=== PATIENT | female | born 1990 | race Caucasian/White ===

== ENCOUNTER 2019-07-31 07:25 | Outpatient (RCR) | payer OTHER, SELFPAY ==
[2019-07-31 08:54] LABS: Hematocrit 30.9 % (37.0-47.0); Hemoglobin 10.3 g/dL (12.0-15.0)
[2019-07-31 09:03] LABS: Glucose 1 Hour PP 50gm Dose 162 mg/dL
[2019-07-31 09:44] LABS: HIV 1/2 Ab P24 Ag Result Negative (Negative)
[2019-07-31 09:50] LABS: Vitamin D 25 Hydroxy 27.9 ng/mL
[2019-08-01] MEDS: RHO(D) IMMUNE GLOBULIN 300 MCG SYRINGE IM (10:20)
== END 2019-10-29 23:59 | disposition home or self-care (01) ==
LOC: ANHLAB 07:25
PROVIDERS: Visit Provider Obstetrics & Gynecology Gynecology
DX: Z36.89 Encounter for other specified antenatal screening (principal); Z29.13 Encounter for prophylactic Rho(D) immune globulin; O36.0990 Maternal care for other rhesus isoimmunization, unspecified trimester, not applicable or unspecified; Z3A.00 Weeks of gestation of pregnancy not specified
CPT/HCPCS: 36415; 82306; 82947; 85014; 85018; 86703; 90384; 96372; G0432; J2790

== ENCOUNTER 2019-10-09 09:15 | Outpatient (RCR) | payer OTHER, SELFPAY ==
[2019-08-30 10:18] VITALS: BP 122/72
[2019-09-06 10:18] VITALS: BP 115/62; PULSE 101
[2019-09-12 10:11] VITALS: BP 118/72; PULSE 107
[2019-09-19 15:22] VITALS: BP 108/69; PULSE 111
[2019-09-26 11:09] VITALS: BP 122/77; PULSE 104
[2019-10-03 10:46] VITALS: BP 115/73; PULSE 106
[2019-10-09 10:31] VITALS: BP 112/74; PULSE 47
== END 2019-11-16 08:54 | disposition home or self-care (01) ==
LOC: ANHOBOP 09:15
PROVIDERS: PCP Family Medicine; Visit Provider Obstetrics & Gynecology Gynecology
DX: O24.419 Gestational diabetes mellitus in pregnancy, unspecified control (principal); Z3A.32 32 weeks gestation of pregnancy; Z3A.33 33 weeks gestation of pregnancy; Z3A.34 34 weeks gestation of pregnancy; Z3A.35 35 weeks gestation of pregnancy; Z3A.36 36 weeks gestation of pregnancy; Z3A.37 37 weeks gestation of pregnancy; Z3A.38 38 weeks gestation of pregnancy
CPT/HCPCS: 59025

== ENCOUNTER 2019-10-13 04:37 | Inpatient (IN) | payer OTHER, SELFPAY ==
[2019-10-13] VITALS (96 sets, daily range): BP systolic 92–134; BP diastolic 46–80; PULSE 60–112; RESP 18; TEMP 36.4–37.4; O2SAT 98–100; BMI 35.1
[2019-10-13] MEDS: AMPICILLIN 2 GM/NS 100 ML 2 GM/100 ML BAG IVPB (05:09)
[2019-10-13] MEDS: LACTATED RINGERS 1,000 ML 125 ML IV CONT ×2 (05:10→10:00)
[2019-10-13 05:11] LABS: Basophils Percent Auto 0.3 % (0.2-1.2); Eosinophils Absolute Auto 0.1 K/mm3 (0-0.3); Hematocrit 33.7 % (37.0-47.0); Hemoglobin 11.5 g/dL (12.0-15.0); Immature Granulocyte Absolute 0.09 K/mm3 (0.00-0.031); Immature Granulocyte Percent A 0.8 % (0-0.5); Lymphocytes Absolute Auto 3.03 K/mm3 (0.9-3.2); Lymphocytes Percent Auto 26.4 % (18.3-44.2); Mean Corpuscular HGB Conc 34.1 g/dl (32-36); Mean Corpuscular Volume 90.8 fl (80-100); Mean Platelet Volume 9.8 fl (7.4-10.4); Monocytes Absolute Auto 0.7 K/mm3 (0.1-0.6); Monocytes Percent Auto 6.2 % (2.6-8.5); Neutrophils Absolute Auto 7.5 K/mm3 (1.3-6.7); Neutrophils Percent Auto 65.3 % (45.5-73.1); Platelet Count Result 240 k/mm3 (150-375); Red Blood Count 3.71 M/mm3 (4.2-5.4); Red Cell Distribution Width 15.3 % (11.5-14.5); White Blood Count 11.5 K/mm3 (4.5-10.0)
[2019-10-13] MEDS: OXYTOCIN 30 UNITS/NS 500 ML 30 UNITS/500 ML BAG IV CONT (05:11)
--- NOTE | 2019-10-13 05:20 | LDADM ---
This patient, Asha Vallejo, was admitted to Labor/Delivery/Recovery 104 on 10/13/19 at 04:37. Plans for labor, pain management and were discussed with patient. Patient/family oriented to hospital policies and general routines including ID bracelet, bed and alarms, visiting hours, pain management, procedures, bathroom and other care routines, personal items, smoking policy, room service/diet and guest tray routines, infant security routines, and visiting hours. Patient/Family are encouraged to report perceived risks to care and to ask questions if they do not understand what they are told or what they should do. See OBIX for further documentation.
--- NOTE | 2019-10-13 07:50 | WPDOBADMIT ---
Obstetrics - Admit Note Admission Note: record reviewed. No pertinent additions to the history and/or any subsequent changes in the physical findings that are not consistent with the expected course of the were found. Additions to the history and/or subsequent changes in the physical findings follow. Here for MIL for GDMA2. Cervix 3-4/th/-3 AROM attempted and minimal fluid returned. FHTs reactive.
[2019-10-13 07:54] LABS: Rapid Plasma Reagin Non-Reactive (NonReactive)
[2019-10-13] MEDS: ONDANSETRON INJ 4 MG/2 ML VIAL IV PUSH (08:17)
[2019-10-13 08:45] LABS: Glucose Point of Care 81 (65-105)
[2019-10-13] MEDS: AMPICILLIN 1 GM/NS 50 ML 1 GM/50 ML BAG IVPB ×2 (09:03→12:45)
[2019-10-13 12:50] LABS: Glucose Point of Care 89 (65-105)
--- NOTE | 2019-10-13 16:51 | PM.OBPRVD ---
OB - Delivery Note Procedure Delivery date: 10/13/19 Procedure: events: Gestational Diabetes (GDMA2) Intrapartal events: None Induction method: AROM and per pitocin protocol Delivery monitor: external FHT and external uterine Route of delivery: Laceration description: Perineal - 2nd Degree (and 1st degree periurethral) Delivery repair: vicryl Specimen: No Estimated blood loss (mL): 100 Anesthesia type: Epidural Disposition: floor Baby Weeks of gestation at delivery: 39 gender: Male Weight (pounds): 6 Weight (ounces): 14 presentation: vertex Placenta delivery description: Spontaneous cord vessel description: 3 Vessels score one minute: 9 score five minutes: 9
--- NOTE | 2019-10-13 16:54 | PM.OBDSVD ---
DS: Diagnosis Discharge Diagnosis (1) 39 weeks gestation of : Code(s): Z3A.39 - 39 weeks gestation of Status: Acute (2) (normal spontaneous vaginal delivery): Code(s): O80 - Encounter for full-term uncomplicated delivery Status: Acute (3) GDM, class A2: Code(s): O24.419 - Gestational diabetes mellitus in , unspecified control Status: Acute OB - DS: Summary OB Procedures : NST and Ultrasound OB Procedures Intrapartum: Spontaneous Vag Delivery OB Procedures: : None Peripartum Data Delivery Method: Natural Vaginal Laceration description: Perineal - 2nd Degree (and periurethral) complications: none Status at Discharge Functional status at discharge: independent ambulation Overall status at discharge: patient is progressing back to baseline Time Spent with Patient Time attestation: Total time spent providing and/or coordinating discharge services: DS: Data Data Completed and Pending Labs on day of discharge: Labs from last 24 hours 10/13/19 10/13/19 10/13/19 12:48 08:08 05:04 WBC RBC Hgb Hct MCV MCH MCHC RDW Plt Count MPV Immature Gran % (Auto) Neut % (Auto) Lymph % (Auto) [place] % (Auto) Eos % (Auto) Baso % (Auto) Lymph # (Auto) [place] # (Auto) Eos # (Auto) Baso # (Auto) Abs Immat Gran (auto) Absolute Neuts (auto) Absolute Nucleated RBC Nucleated RBC % POC Capillary Glucose 89 81 RPR Blood Type A Negative Antibody Screen Negative 10/13/19 10/13/19 05:04 05:04 WBC 11.5 H RBC 3.71 L Hgb 11.5 L Hct 33.7 L MCV 90.8 MCH 31.0 MCHC 34.1 RDW 15.3 H Plt Count 240 MPV 9.8 Immature Gran % (Auto) 0.8 H Neut % (Auto) 65.3 Lymph % (Auto) 26.4 Traverse % (Auto) 6.2 Eos % (Auto) 1.0 Baso % (Auto) 0.3 Lymph # (Auto) 3.03 [place]verse # (Auto) 0.7 H Eos # (Auto) 0.1 Baso # (Auto) 0.0 Abs Immat Gran (auto) 0.09 H Absolute Neuts (auto) 7.5 H Absolute Nucleated RBC 0.0 Nucleated RBC % 0.0 POC Capillary Glucose RPR Non-reactive Blood Type Antibody Screen Discharge Plan Discharge Attending physician on discharge: Ree Pinedo Discharging Clinician: Ree Pinedo Anticipated Discharge Date/Time: 10/14/19 18:00 Patient Disposition: Home, Self-Care Activity: may drive after 2 weeks, as tolerated and pelvic rest Diet: regular Discharge Instructions: Education: Mom and Baby Guide Given to: Mother Follow-Up: Call your delivering provider's office for an appointment to be seen in: 6 Weeks Mom and baby should come to the [facility] for the follow-up appointment. Appointment Date/Time: October at 9:00 a.m. What to expect at your follow-up visit: Blood Pressure Check Physical Assessment Call [phone] if you are unable to keep your appointment time. BREAST CARE: 1. Wear a snug supportive bra. 2. For engorgement discomfort: Breast Feeding: A. Apply warm moist washcloths B. Express milk as needed to relieve engorgement C. Wear loose clothing 3. For sore nipples: A. Identify correct latch-on B. Apply warm moist washcloths before and after nursing C. Air dry nipples after nursing D. May apply Lansinoh cream to nipples EPISIOTOMY/PERINEAL CARE: 1. Until bleeding stops, use your beau bottle after urinating 2. Change your pad frequently throughout the day 3. You may take sitz baths several times a day (fill your bathtub with warm water and soak for 20 minutes.) Do NOT bathe in the water 4. No tub baths until seen by your physician - You may shower ACTIVITY: 1. Rest as much as possible. 2. Do not exercise or lift anything heavier than your baby (such as laundry or other children.) 3. Avoid stairs or driving as much a
[2019-10-13] MEDS: OXYTOCIN 30 UNITS/NS 500 ML 30 UNITS/500 ML BAG 125 UNITS IV CONT (17:06)
[2019-10-13] MEDS: WITCH HAZEL 40 PADS 1 PAD TOPICAL (19:12)
[2019-10-13] MEDS: BENZOCAINE 20% AER SPR (*SP) 56 GM CAN 1 SPRAY TOPICAL (19:12)
--- NOTE | 2019-10-13 19:30 | PC.NURSE ---
Patient arrived to unit at 1926 via wheelchair with and significant other. Oriented to floor. Discussed admission packet in detail. Call light placed in reach. Demetra ROBERTO
[2019-10-13] MEDS: IBUPROFEN 600 MG TABLET PO (21:02)
[2019-10-14] MEDS: IBUPROFEN 600 MG TABLET PO ×2 (03:50→14:01)
[2019-10-14 06:08] LABS: Hematocrit 29.6 % (37.0-47.0); Hemoglobin 9.6 g/dL (12.0-15.0)
[2019-10-14 08:00] VITALS: BP 113/64; PULSE 73; RESP 18; TEMP 36.6; O2SAT 100
[2019-10-14] MEDS: ACETAMINOPHEN 325 MG TABLET 650 MG PO (08:26)
[2019-10-14] MEDS: MULTIVIT/MIN/PREN/FOL AC/IRON TABLET 1 TAB PO (08:27)
[2019-10-14] MEDS: POLYSACCHARIDE IRON COMPLEX 150 MG CAPSULE PO ×2 (08:27→16:43)
[2019-10-14] MEDS: DOCUSATE SODIUM 100 MG CAPSULE PO ×2 (08:28→16:43)
[2019-10-14 08:30] VITALS: PULSE 73; RESP 18; O2SAT 100
--- NOTE | 2019-10-14 08:53 | P.PNOB_ITS ---
OB - PN: Subj Subjective Date/time seen: 10/14/19 08:53 Patient comments: no complaints, pain well controlled, tolerating diet and flatus present baby status: doing well and nursing well [place] feeding status: exclusively breast feeding OB - PN: Obj Data Labs CBC & Chem 7: 10/14/19 05:05 Labs: Laboratory Results - last 24 hr 10/13/19 10/14/19 10/14/19 12:48 05:05 05:05 Hgb 9.6 L Hct 29.6 L POC Capillary Glucose 89 Blood Type A Negative Antibody Screen Negative Screen Negative Baby's Blood Type B pos Baby's ROSALEE Negative Doses of RhIg Required 1 OB - PN A/P Plan day: 1 Plan: routine care, discharge home and follow up 6 weeks Comments: Desires infant to be circumcised. Discussed procedure and its risk. Informed consent obtained Time Spent With Patient Time: Total time spent is greater than 50% in coordination of care (as documented) at patient's floor/unit and/or counseling patient: Time with patient: 15 - 25 minutes Review of Systems Constitutional: Constitutional: Reports no additional constitutional complaints Cardiovascular: Cardiovascular: Reports no additional cardiovascular complaints Respiratory: Respiratory: Reports no additional respiratory complaints Gastrointestinal: Gastrointestinal: Reports no additional gastrointestinal complaints Genitourinary: Genitourinary: Reports no additional female genitourinary complaints Exam Const: General: comfortable, no acute distress, alert and awake Resp: Effort & Inspection: normal respiratory effort Auscultation: clear to auscultation bilaterally Cardio: Rate: regular rate GI: Auscultation: normal bowel sounds Other: Fundus firm below umbilicus Psych: Appearance: grossly normal
--- NOTE | 2019-10-14 08:54 | PM.OBDSVD ---
OB - DS: Summary OB Procedures : NST OB Procedures Intrapartum: Spontaneous Vag Delivery OB Procedures: : None Peripartum Data Delivery Method: Natural Vaginal Time Spent with Patient Time attestation: Total time spent providing and/or coordinating discharge services: Exam Const: General: comfortable, no acute distress, alert and awake Resp: Effort & Inspection: normal respiratory effort Auscultation: clear to auscultation bilaterally Cardio: Rate: regular rate GI: GI Palp: Yes Soft to palpation Auscultation: normal bowel sounds Other: Fundus firm below umbilicus DS: Data Data Completed and Pending Labs on day of discharge: Labs from last 24 hours 10/14/19 10/14/19 10/13/19 05:05 05:05 12:48 Hgb 9.6 L Hct 29.6 L POC Capillary Glucose 89 Blood Type A Negative Antibody Screen Negative Screen Negative Baby's Blood Type B pos Baby's ROSALEE Negative Doses of RhIg Required 1 Discharge Plan Discharge Attending physician on discharge: Ree Pinedo Discharging Clinician: Ree Pinedo Anticipated Discharge Date/Time: 10/14/19 18:00 Patient Disposition: Home, Self-Care Activity: may drive after 2 weeks, as tolerated and pelvic rest Diet: regular Patient Instructions: Antibiotic Form Stand Alone Forms: General Discharge Information Follow-up/Referrals: Ree Pinedo MD [Physician] - 6 Weeks Discharge Medications: New polysaccharide iron complex 150 mg iron Capsule 150 mg PO BIDWM Qty: 60 RF: 0 docusate sodium 100 mg Capsule 100 mg PO BID PRN (Reason: Constipation) Qty: 60 RF: 0 ibuprofen 600 mg Tablet 600 mg PO Q6H PRN (Reason: Cramping) Qty: 60 RF: 0 Continued PNV cmb#95-ferrous fumarate-FA [] 28 mg iron- 800 mcg Tablet 1 tablet PO DAILY RF: 0 ergocalciferol (vitamin D2) [Vitamin D2] 1,250 mcg (50,000 unit) Capsule 50,000 unit PO 2XW RF: 0 Discontinued insulin lispro [Humalog U-100 Insulin] 100 unit/mL Solution 4 unit subcut AC RF: 0 Novolin N NPH U-100 Insulin 100 unit/mL Suspension 52 unit SUBCUT HS RF: 0 ferrous sulfate 325 mg (65 mg iron) Tablet 325 mg PO DAILY RF: 0 Date of admission: 10/13/19 04:37 Primary Care Provider: Beth Thorpe Admitting Provider: Ree Pinedo Attending physician on admission: Ree Pinedo Condition: Stable
[2019-10-14] MEDS: RHO(D) IMMUNE GLOBULIN 300 MCG SYRINGE IM (15:31)
--- NOTE | 2019-10-14 16:00 | PC.NURSE ---
1100-Patient viewed the discharge video Mother & Baby Care, The First Two Weeks . Patient was given the opportunity and encouraged to ask questions. Patient verbalized understanding of information shared and has been given the mother/baby guide for home reference.
[2019-10-15 09:19] VITALS: BP 116/74; PULSE 83; RESP 20; TEMP 36.8
== END 2019-10-14 18:40 | disposition home or self-care (01) | DRG 807 ==
LOC: ANHLDR 16:57 → ANHOB2 10-14 08:56 → ANHLDR 10-15 12:26 → ANHOB2 10-15 12:26
PROVIDERS: Admitting Provider Obstetrics & Gynecology Gynecology; PCP Family Medicine; Visit Provider Obstetrics & Gynecology
DX: O24.429 Gestational diabetes mellitus in childbirth, unspecified control (principal); Z37.0 Single live birth; O99.824 Streptococcus B carrier state complicating childbirth; Z23 Encounter for immunization; O70.1 Second degree perineal laceration during delivery; Z3A.39 39 weeks gestation of pregnancy; O71.82 Other specified trauma to perineum and vulva
CPT/HCPCS: 36415; 85014; 85018; 85025; 86592; 86850; 86900; 86901; 90384; A9270; J0290; J2405; J2590; J2790; J2795; J7120

== ENCOUNTER 2021-01-11 04:27 | Emergency (ER) | payer OTHER, SELFPAY ==
--- NOTE | ~2021-01-11 | CT_ITS ---
EXAMINATION: CT abdomen pelvis wo con DATE: 01/11/2021 05:39 INDICATION: Upper abdominal pain. Right flank pain. TECHNIQUE: Computed tomography (CT) of the abdomen and pelvis was performed without intravenous contr ast. Automated exposure control and iterative reconstruction technique were employed. The dose-length product was 730.83 mGy-cm. COMPARISON: None FINDINGS: Peripheral groundglass opacities and consolidation in the right lower lobe consistent with pneumonia. Heart size is normal. No pericardial or pleural effusion. Diffuse hepatic steatosis. Status post cho lecystectomy. Spleen, pancreas and bilateral adrenal glands are normal. Kidneys and ureters are ayanna l with no urolithiasis, hydroureteronephrosis or perinephric/ureteral stranding. Uterus and bilateral adnexa are unremarkable. Tampon within the vaginal vault. There are few scattered colonic diverticul a without adjacent inflammatory change to suggest diverticulitis. Small bowel and appendix are normal . No free intraperitoneal gas or fluid. No pathologically enlarged abdominal or pelvic lymphadenopath y. Bones are unremarkable. IMPRESSION: 1. Right lower lobe pneumonia. 2. Diffuse hepatic steatosis. Reviewed, dictated and finalized at location A.
[2021-01-11 04:36] VITALS: BP 136/99; PULSE 99; RESP 15; TEMP 36.9; O2SAT 97
[2021-01-11] MEDS: SODIUM CHLORIDE 0.9% IV 1,000 ML 999 ML IV CONT (05:21)
[2021-01-11 05:46] LABS: Add Urine Microscopic? YES; Appearance Urine Clear (Clear); Basophils Percent Auto 0.2 % (0.2-1.2); Bilirubin Urine Negative (Negative); Blood Urine 3+ (Negative); Color Urine Yellow (Yellow); Eosinophils Percent Auto 0.3 % (0-4.4); Glucose Urine UA Negative (Negative); Hematocrit 34.1 % (37.0-47.0); Hemoglobin 11.4 g/dL (12.0-15.0); Immature Granulocyte Absolute 0.03 K/mm3 (0.00-0.031); Immature Granulocyte Percent A 0.5 % (0-0.5); Ketones Urine Negative (Negative); Leukocyte Esterase Ur Negative LEU/UL (Negative); Lymphocytes Percent Auto 25.7 % (18.3-44.2); Mean Corpuscular HGB Conc 33.4 g/dl (32-36); Mean Corpuscular Hemoglobin 28.6 pg (26-34); Mean Corpuscular Volume 85.7 fl (80-100); Mean Platelet Volume 9.6 fl (7.4-10.4); Monocytes Absolute Auto 0.5 K/mm3 (0.1-0.6); Monocytes Percent Auto 7.1 % (2.6-8.5); Mucus Urine Rare /lpf; Neutrophils Absolute Auto 4.4 K/mm3 (1.3-6.7); Neutrophils Percent Auto 66.2 % (45.5-73.1); Nitrate Urine Negative (Negative); Platelet Count Result 229 k/mm3 (150-375); Protein Urine Negative (Negative); RBC Urine 0-2 /hpf (0-2); Red Blood Count 3.98 M/mm3 (4.2-5.4); Red Cell Distribution Width 13.1 % (11.5-14.5); Specific Grav Ur 1.005 (1.001-1.035); Squamous Epithelial Cell Urine Occasional /hpf (Few); Urobilinogen Urine Negative mg/dL (<2.0); WBC Urine 0-3 /hpf; White Blood Count 6.6 K/mm3 (4.5-10.0)
--- NOTE | 2021-01-11 05:51 | ED.GENADULT ---
HPI - General Adult General Chief complaint: Unspecified Stated complaint: dehydrated Time Seen by Provider: 01/11/21 05:49 Source: patient Mode of arrival: ambulatory Limitations: no limitations History of Present Illness HPI narrative: Patient is a 30-year-old female complaining of nausea, diarrhea body aches and epigastric discomfort described as burning that started yesterday. Patient denies any pain, shortness of breath, vomiting, GI bleeding, fever or chills. Patient denies any urinary symptoms. Patient states that she recently was cleared from quarantine after being diagnosed with Covid infection approximately 1-1/2 to 3 weeks ago. Related Data Allergies Allergy/AdvReac Type Severity Reaction Status Date / Time No Known Allergies Allergy Verified 01/11/21 05:20 Review of Systems Review of Systems: All systems reviewed & are unremarkable except as noted in HPI and below Constitutional: Constitutional: Denies body ache(s), Denies chills, Denies excessive sweating, Denies fatigue, Denies fever(s), Denies headache(s), Denies lethargy, Denies malaise, Denies weakness and Denies weight loss Eyes: Eyes: Denies blurry vision, Denies change in vision and Denies loss of vision ENT: Denies dizziness, Denies ear discharge, Denies headache(s), Denies lip swelling, Denies epistaxis, Denies nasal congestion, Denies neck pain, Denies throat swelling and Denies tongue swelling Cardiovascular: Cardiovascular: Denies chest pain, Denies chest pain at rest, Denies chest pain with activity, Denies diaphoresis, Denies rapid heart rate, Denies edema, Denies irregular heart rhythm, Denies lightheadedness, Denies palpitations, Denies dyspnea and Denies dyspnea on exertion Respiratory: Respiratory: Denies chest congestion, Denies cough, Denies hemoptysis, Denies dyspnea and Denies dyspnea on exertion Gastrointestinal: Gastrointestinal: Denies abdominal pain, Denies melena, Denies hematochezia, Denies vomiting and Denies hematemesis Musculoskeletal: Musculoskeletal: Denies abnormal gait, Denies deformity, Denies joint swelling, Denies limited range of motion, Denies neck pain and Denies numbness Neurologic: Denies Abnormal speech present, Denies abnormal gait, Denies confusion, Denies dizziness, Denies headache(s), Denies focal weakness, Denies loss of vision, Denies numbness, Denies Other visual disturbances, Denies Sensory deficit (Neuro) and Denies weakness Psychiatric: Psychiatric: Denies confusion, Denies depression, Denies auditory hallucinations, Denies homicidal ideation and Denies suicidal ideation Endocrine: Endocrine: Denies cold intolerance, Denies excessive sweating, Denies fatigue, Denies heat intolerance and Denies palpitations Hematologic/Lymphatic: Hematologic/Lymphatic: Denies easy bleeding and Denies easy bruising Allergic/Immunologic: Allergic/Immunologic: Denies lip swelling, Denies throat swelling and Denies tongue swelling [facility] Family History Family History (Updated 02/20/19 @ 15:24 by DOCTOR UNKNOWN) Mother Hypertension Social History Social History Smoking status: Never smoker Second hand tobacco smoke exposure: No Alcohol intake: never Gender identity (if verbalized by the patient): Female Comments Past medical history: None Family history: Noncontributory Social history: Non-smoker no EtOH or drug use Exam Const: General: cooperative, healthy appearing, comfortable, no acute distress, well developed, alert and awake; No confusion Orientation/consciousness: oriented to person, oriented to place, oriented to time, patient oriented x3 and No confusion Limitations: no limitations HENMT: Head: normal to inspection, normocephalic and atraumatic Ears: hearing grossly normal bilaterally, TM normal on the right and TM normal on the left General nose exam: Normal external nose present, Normal nares present and No nasal discharge present Face and sinus: normal facial exam Mouth: Yes Normal oral and jim
[2021-01-11] MEDS: ONDANSETRON INJ 4 MG/2 ML VIAL IV PUSH (05:53)
[2021-01-11 05:54] VITALS: BP 129/84; PULSE 81; RESP 10; O2SAT 96
[2021-01-11 05:58] LABS: Alanine Aminotransferase 73 U/L (4-35); Albumin Level 4.3 g/dL (3.5-5.1); Alkaline Phosphatase 59 U/L (38-126); Anion Gap 11 mmol/L (8-16); Aspartate Amino Transferase 74 U/L (14-36); Bilirubin,Total 0.4 mg/dL (0.2-1.3); Blood Urea Nitrogen 4 mg/dL (7-17); Calcium 9.5 mg/dL (8.4-10.2); Carbon Dioxide 26 mmol/L (22-30); Chloride 105 mmol/L (98-107); Estimated CRCL calculation 120 ml/min; Estimated Glomerular Filt Rate > 60; Glucose 117 mg/dL (65-105); Lipase 48 U/L (23-300); Potassium 2.9 mmol/L (3.4-5.0); Sodium 142 mmol/L (137-145)
[2021-01-11] MEDS: POTASSIUM CHLORIDE 20 MEQ PACKET (FOR LIQUID) 40 MEQ PO (06:13)
[2021-01-11 06:31] VITALS: BP 126/89; PULSE 82; RESP 13; O2SAT 98
[2021-01-11 07:25] VITALS: BP 121/72; PULSE 100; RESP 16; O2SAT 95
== END 2021-01-11 07:26 | disposition home or self-care (01) ==
PROVIDERS: Emergency Provider Emergency Medicine; PCP Family Medicine
DX: K52.9 Noninfective gastroenteritis and colitis, unspecified (principal); B34.9 Viral infection, unspecified
CPT/HCPCS: 36415; 74176; 80053; 81001; 81025; 83690; 85025; 96361; 96374; 99284; A9270; J2405; J7030

== ENCOUNTER 2022-03-23 12:02 | Emergency (ER) | payer OTHER, SELFPAY ==
--- NOTE | ~2022-03-23 | XR_ITS ---
EXAMINATION: XR chest 2V DATE: 03/23/2022 12:51 INDICATION: Chest tightness TECHNIQUE: PA and lateral views of the chest are obtained. COMPARISON: None available FINDINGS: The lungs are free of acute opacities. No pleural effusion or pneumothorax. The cardiomedia stinal silhouette is normal. The visualized bones and soft tissues are unremarkable. IMPRESSION: 1. No acute cardiopulmonary abnormality. Reviewed, dictated and finalized at location B.
--- NOTE | 2022-03-23 12:04 | ECG_ITS ---
Measurements Intervals [place] Rate: 99 P: 44 NH: 142 QRS: 21 QRSD: 84 T: 11 QT: 349 QTc: 448 Interpretive Statements SINUS RHYTHM NONSPECIFIC T-WAVE ABNORMALITY- ANTEROLAT/INF LEADS BASELINE ARTIFACT- I, III, AVR, AVL, AVF BORDERLINE ECG NO PREVIOUS ECG AVAILABLE FOR COMPARISON Electronically Signed On 03-23-2022 12:41:04 CDT by Kendell Mckenna D.O.
[2022-03-23 12:16] VITALS: BP 175/114; PULSE 102; RESP 20; TEMP 36.9; O2SAT 99
[2022-03-23 12:21] LABS: Basophils Percent Auto 0.4 % (0.2-1.2); Eosinophils Absolute Auto 0.1 K/mm3 (0-0.3); Eosinophils Percent Auto 1.3 % (0-4.4); Hematocrit 37.6 % (37.0-47.0); Hemoglobin 12.7 g/dL (12.0-15.0); Immature Granulocyte Absolute 0.04 K/mm3 (0.00-0.031); Immature Granulocyte Percent A 0.4 % (0-0.5); Lymphocytes Absolute Auto 3.11 K/mm3 (0.9-3.2); Lymphocytes Percent Auto 32.3 % (18.3-44.2); Mean Corpuscular HGB Conc 33.8 g/dl (32-36); Mean Corpuscular Hemoglobin 29.7 pg (26-34); Mean Corpuscular Volume 87.9 fl (80-100); Mean Platelet Volume 9.1 fl (7.4-10.4); Monocytes Absolute Auto 0.4 K/mm3 (0.1-0.6); Monocytes Percent Auto 4.5 % (2.6-8.5); Neutrophils Absolute Auto 5.9 K/mm3 (1.3-6.7); Neutrophils Percent Auto 61.1 % (45.5-73.1); Platelet Count Result 332 k/mm3 (150-375); Red Blood Count 4.28 M/mm3 (4.2-5.4); Red Cell Distribution Width 13.1 % (11.5-14.5); White Blood Count 9.6 K/mm3 (4.5-10.0)
[2022-03-23 12:30] VITALS: BP 153/95; PULSE 103; RESP 18; O2SAT 100
[2022-03-23 12:31] LABS: Alanine Aminotransferase 18 U/L (6-35); Albumin Level 4.9 g/dL (3.5-5.1); Alkaline Phosphatase 56 U/L (38-126); Anion Gap 15 mmol/L (8-16); Aspartate Amino Transferase 24 U/L (14-36); Bilirubin,Total 0.5 mg/dL (0.2-1.3); Blood Urea Nitrogen 9 mg/dL (7-17); Carbon Dioxide 22 mmol/L (22-30); Chloride 103 mmol/L (98-107); Estimated CRCL calculation 118 ml/min; Estimated Glomerular Filt Rate > 60; Glucose 114 mg/dL (65-110); Lipase 70 U/L (23-300); Potassium 3.9 mmol/L (3.4-5.0); Sodium 140 mmol/L (137-145)
[2022-03-23 12:43] LABS: Troponin I < 0.012 ng/mL (0.000-0.034)
[2022-03-23 12:45] LABS: Prothrombin Time 12.5 Seconds (11.1-14.7)
[2022-03-23 12:46] LABS: Partial Thromboplastin Time 28.4 SECONDS (22.3-36.8)
[2022-03-23 13:15] VITALS: PULSE 91; RESP 16
[2022-03-23] MEDS: IPRATROPIUM BR 0.02% INH SOLN 0.5 MG/2.5 ML VIAL INHALATION (13:20)
[2022-03-23] MEDS: ALBUTEROL SULFATE NEB 2.5 MG/3 ML INH INHALATION (13:20)
[2022-03-23 13:26] VITALS: PULSE 89; RESP 16
[2022-03-23 13:29] VITALS: BP 135/95; PULSE 104; RESP 17; O2SAT 100
--- NOTE | 2022-03-23 13:37 | ED.CHESTPAIN ---
HPI - Chest Pain General Chief Complaint: Chest Pain Stated Complaint: chest tightness Time Seen by Provider: 03/23/22 12:33 History of Present Illness HPI narrative: 31-year-old female presents the emergency room for evaluation of intermittent chest pain she has had for 1 week. Patient states that she feels a tightness in her chest and occasionally has difficulty taking in a deep breath. 3 days ago she noticed intermittent shooting pain from her left shoulder and her left elbow with no alleviating or aggravating factors. Patient states that she has a history of anxiety which she has not taking medications for. Related Data Home Medications Medication Instructions Recorded Confirmed ergocalciferol (vitamin D2) 1,250 50,000 unit PO 2XW 08/30/19 10/13/19 mcg (50,000 unit) capsule (Vitamin D2) vit no.95-ferrous 1 tablet PO DAILY 08/30/19 10/13/19 fumarate 28 mg-folic acid 800 mcg tablet () Allergies Allergy/AdvReac Type Severity Reaction Status Date / Time banana Allergy Intermediate SWELLING,HI Verified 10/03/21 12:33 VES Review of Systems Review of Systems: CONSTITUTIONAL: Denies fever, chills, or sweats. EYES: Denies visual changes, redness, or discharge. ENT: Denies rhinorrhea, congestion, sore throat, or otalgia. CARDIOVASCULAR: Reports chest pain RESPIRATORY: Denies cough or dyspnea. GASTROINTESTINAL: Denies abdominal pain, nausea, vomiting, or diarrhea. GENITOURINARY: Denies dysuria or hematuria. SKIN: Denies rash or itching. MUSCULOSKELETAL: Denies back pain, joint pain, or myalgia. NEUROLOGIC: Denies headache, numbness, dizziness, or weakness. PSYCHIATRIC: Denies anxiety or depression. [facility] Family History Family History Mother Hypertension Other No pertinent family history Social History Social History Smoking status: Never smoker Second hand tobacco smoke exposure: No Alcohol intake: never Substance use: never Gender identity (if verbalized by the patient): Female Spiritual care concerns: No Exam Narrative: GENERAL: Well-appearing, well-nourished, no physical limitations, and in no acute distress. HEAD: Normocephalic, atraumatic. EYES: Conjunctivae normal, PERRLA and EOMI. CHEST: Clear to auscultation. No respiratory distress. No wheezes rales or rhonchi. No tenderness. HEART: Regular rate and rhythm. No murmur heard. Normal peripheral pulses. EXTREMITIES: Normal range of motion. No edema. No clubbing or cyanosis SKIN: Warm, dry, no rash. No noted wounds NEURO: No focal deficits. Alert and oriented x3. MAEW. CN's II-XI intact bilaterally, normal gait PSYCH: Cooperative. Normal mood and affect. Course Vital Signs Vital signs: Vital Signs Temperature 36.9 C 03/23/22 12:16 Pulse Rate 102 H 03/23/22 12:16 Respiratory Rate 20 03/23/22 12:16 Blood Pressure 175/114 H 03/23/22 12:16 Pulse Oximetry 99 03/23/22 12:16 Oxygen Delivery Room Air 03/23/22 12:16 Temperature 36.9 C 03/23/22 12:16 Pulse Rate 104 H 03/23/22 13:29 Respiratory Rate 17 03/23/22 13:29 Blood Pressure 135/95 H 03/23/22 13:29 Pulse Oximetry 100 03/23/22 13:29 Oxygen Delivery Room Air 03/23/22 12:40 MDM - Chest Pain MDM Narrative Medical decision making narrative: 31-year-old female presenting with chest pain. Exam showed no evidence of volume overload. EKG shows no signs of active ischemia. Chest x-ray shows no active cardiopulmonary process. Single troponin was negative. Patient's PERC score was a 0. Heart score was 1, so will have patient follow-up with her primary care physician. Patient likely experiencing a mild pleuritis or, patient does have anxiety so this could be anxiety related. Patient refused Ativan. Encourage patient to go home and take her hydroxyzine. Lab Data Result diagrams: 03/23/22 12:13
--- NOTE | 2022-03-23 13:55 | PC.NURSE ---
pt states she does not want an IV or Ativan and that her main concern was her heart. pt states she wants to be discharged. DANNI Alba made aware.
[2022-03-23 14:03] VITALS: BP 132/101; PULSE 117; RESP 16; O2SAT 100
[2022-03-23 14:54] LABS: Thyroid Stimulating Hormone 0.123 uIU/mL (0.465-4.680)
== END 2022-03-23 14:15 | disposition home or self-care (01) ==
PROVIDERS: Emergency Medicine; Emergency Provider Nurse Practitioner Family; PCP Family Medicine
DX: R07.89 Other chest pain (principal); R94.31 Abnormal electrocardiogram [ECG] [EKG]
CPT/HCPCS: 36415; 71046; 80053; 83690; 84443; 84484; 85025; 85610; 85730; 93005; 94640; 99284

== ENCOUNTER → 2023-04-10 15:43 | Outpatient (CLI) | payer OTHER, SELFPAY ==
--- NOTE | ~2023-04-10 | US_ITS ---
EXAMINATION: US OB transvaginal DATE: 04/10/2023 16:10 INDICATION: Evaluate viability TECHNIQUE: Real-time transabdominal and transvaginal obstetric ultrasound. FINDINGS: No prior studies for comparison. The uterus measures 9.8 x 5.1 x 6.6 cm. There is an intrauterine gestational sac, with pole verona ntified. The crown rump length measures 0.21 cm, which correlates with a estimated gestational age o f 5 weeks 5 days. heart tones are identified measuring 100 bpm. The ovaries are within normal limits. Right ovary measures 3.1 x 2.3 x 3.3 cm. Left ovary measures 2. 6 x 1.5 x 2.4 cm. No free fluid or adnexal mass is seen. IMPRESSION: 1. SL IUP with an EGA of 5 weeks, 5 days (EDC by current ultrasound of 12/06/2023). Reviewed, dictated and finalized at location L. IMPRESSION: 1. SL IUP with an EGA of 5 weeks, 5 days (EDC by current ultrasound of ).
== END ==
PROVIDERS: PCP Advanced Practice Midwife; Visit Provider Advanced Practice Midwife
DX: O36.80X0 Pregnancy with inconclusive fetal viability, not applicable or unspecified (principal); Z3A.00 Weeks of gestation of pregnancy not specified
CPT/HCPCS: 76817

== ENCOUNTER → 2023-04-18 15:19 | Outpatient (CLI) | payer OTHER, SELFPAY ==
--- NOTE | ~2023-04-18 | US_ITS ---
EXAMINATION: US OB limited DATE: 04/18/2023 15:39 INDICATION: Viability. TECHNIQUE: Real-time transabdominal pelvic ultrasound was performed. COMPARISON: None. FINDINGS: The uterus measures 10.4 x 6.4 x 7.7 cm. There is an intrauterine gestational sac. A yolk sac is iden tified. A pole is noted. heart motion is identified measuring 156 beats per minute (bpm) by M-mode Doppler. There is a small subchorionic hematoma measuring 1.4 x 0.3 x 0.5 cm. The ovaries a re not visualized. There is no free fluid in the pelvis. IMPRESSION: 1. Single living intrauterine gestation with estimated date of delivery of 12/07/2023 based on the ul trasound from 04/10/2023. 2. Small subchorionic hematoma. Reviewed, dictated and finalized at location E. IMPRESSION: 1. Single living intrauterine gestation with estimated date of delivery of 11/13 based on the ultrasound from 04/10/2023. 2. Small subchorionic hematoma.
== END ==
PROVIDERS: PCP Obstetrics & Gynecology Gynecology; Visit Provider Obstetrics & Gynecology Gynecology
DX: Z36.9 Encounter for antenatal screening, unspecified (principal); Z3A.00 Weeks of gestation of pregnancy not specified
CPT/HCPCS: 76815

== ENCOUNTER → 2023-05-16 15:16 | Outpatient (CLI) | payer OTHER, SELFPAY ==
--- NOTE | ~2023-05-16 | US_ITS ---
US OB limited 05/16/2023 15:49 Indication: Subchorionic hematoma. Procedure: Real-time Limited obstetrical ultrasound utilizing transabdominal technique Comparison: Ultrasound dated 04/18/2023 Findings: There is an intrauterine gestational sac containing a pole. heart rate 168 BPM. There is a subchorionic hematoma measuring 3.2 x 1.7 x 2 cm. There are multiple small uterine fibroi ds. No free fluid in the pelvis. Uterus measures 11.9 x 7.6 x 8.7 cm. Impression: 1: Single living intrauterine with heart rate of 168 BPM. 2: Moderate subchorionic hematoma measuring 3.2 x 1.7 x 2 cm. 3: Uterine fibroids, largest measuring 1.8 cm anteriorly. Reviewed, dictated and finalized at location A. Impression: 1: Single living intrauterine with heart rate of 168 BPM. 2: Moderate subchorionic hematoma measuring 3.2 x 1.7 x 2 cm. 3: Uterine fibroids, largest measuring 1.8 cm anteriorly.
== END ==
PROVIDERS: PCP Obstetrics & Gynecology Gynecology; Visit Provider Obstetrics & Gynecology Gynecology
DX: O36.8910 Maternal care for other specified fetal problems, first trimester, not applicable or unspecified (principal); Z3A.00 Weeks of gestation of pregnancy not specified; D25.9 Leiomyoma of uterus, unspecified
CPT/HCPCS: 76815

== ENCOUNTER → 2023-06-08 07:48 | Outpatient (CLI) | payer OTHER, SELFPAY ==
--- NOTE | ~2023-06-08 | US_ITS ---
EXAMINATION: US OB limited DATE: 06/08/2023 08:35 INDICATION: viability. TECHNIQUE: Real-time transabdominal obstetric ultrasound. FINDINGS: Comparison to multiple prior studies sequentially, with oldest reviewed study dated 023. There is a single living fetus in breech presentation. The there is a hypoechoic structure along the anterior aspect of the uterus measuring 2.9 x 1.6 x 1.4 cm, likely a uterine fibroid. The placenta is posterior/fundal without placenta previa. Placental margin is 5.9 cm to the cervix. There is a small subchorionic hemorrhage measuring 2.4 x 0.4 x 2.5 cm. cardiac activity and movement is noted with a heart rate of 140 beats per minute. T he amniotic fluid volume is normal. The following biometric data were obtained: BPD: 84mm corresponds to gestational age 14 weeks 2 days. Head circumference: 104mm corresponds to gestational age 14 weeks 6 days. Abdominal circumference: 86mm corresponds to gestational age 14 weeks 6 days. Femur length: 14mm corresponds to gestational age 14 weeks 1 days. Estimated weight: 101grams +/- 15grams.] IMPRESSION: 1. Single living intrauterine in breech presentation with an estimated gestational age of 13 weeks 5 days by inititial ultrasound. Appropriate interval growth. 2. Small subchorionic hemorrhage. Reviewed, dictated and finalized at location B. [place] IMPRESSION: 1. Single living intrauterine in breech presentation with an estimat ed gestational age of 13 weeks 5 days by inititial ultrasound. Appropriate int erval growth. 2. Small subchorionic hemorrhage.
== END ==
PROVIDERS: PCP Advanced Practice Midwife; Visit Provider Advanced Practice Midwife
DX: O36.8910 Maternal care for other specified fetal problems, first trimester, not applicable or unspecified (principal); Z3A.13 13 weeks gestation of pregnancy
CPT/HCPCS: 76815

== ENCOUNTER → 2023-07-12 10:24 | Outpatient (CLI) | payer OTHER, SELFPAY ==
--- NOTE | ~2023-07-12 | US_ITS ---
EXAMINATION: US OB /maternal detail DATE: 07/12/2023 11:34 INDICATION: Second trimester anatomic survey TECHNIQUE: Real-time ultrasound of the pelvis was performed. COMPARISON: 06/08/2023 FINDINGS: There is a single living fetus in variable presentation. The placenta is fundal and 7.1 cm from the i nternal cervical os. The measured cervical length is 4 cm. Hypoechoic areas of the anterior uterine b rahat measuring up to 2.2 cm have the appearance of intramural fibroids. heart rate is 144 beats per minute (bpm). cardiac activity and movement are noted. The amniotic fluid index is s ubjectively normal. The following anatomy was identified as normal: 4 chamber heart 3 vessel cord cord insertion kidneys urinary bladder stomach spine diaphragm ventricles cisterna magna cerebellum The following biometric data were obtained: Biparietal diameter (BPD): 4.3 cm; head circumference (HC): 16.6 cm; abdominal circumference (AC): 14 .3 cm; femur length (FL): 2.8 cm. These measurements are concordant. Estimated weight is 277 g +/- 41 g, which correlates with the 56th percentile when 12/06/2023 is used as estimated date of delivery. As single measurements, these parameters are each equal to the following estimated gestational ages w ith ranges of +/- 2 standard deviations: BPD: 19 weeks 0 days ( 17 weeks 2 days - 20 weeks 5 days). HC: 19 weeks 2 days ( 17 weeks 6 days - 20 weeks 5 days). AC: 19 weeks 5 days ( 17 weeks 5 days - 21 weeks 5 days). FL: 18 weeks 4 days ( 16 weeks 6 days - 20 weeks 3 days). estimated gestational age based solely on measurements from this exam is 19 weeks 1 days +/- 1 weeks 2 days. IMPRESSION: 1. Single living fetus in variable presentation. 2. Estimated weight is 277 g +/- 41 g, which correlates with the 56th percentile when 12/06/2023 is used as estimated date of delivery. Reviewed, dictated and finalized at location B. [employer] IMPRESSION: 1. Single living fetus in variable presentation. 2. Estimated weight is 277 g +/- 41 g, which correlates with the 56th per centile when 12/06/2023 is used as estimated date of delivery.
== END ==
PROVIDERS: PCP Advanced Practice Midwife; Visit Provider Advanced Practice Midwife
DX: O36.8920 Maternal care for other specified fetal problems, second trimester, not applicable or unspecified (principal); Z3A.19 19 weeks gestation of pregnancy
CPT/HCPCS: 76805

== ENCOUNTER 2023-09-13 09:38 | Outpatient (CLI) | payer OTHER, SELFPAY ==
[2023-09-13 10:56] LABS: Hematocrit 32.3 % (37.0-47.0); Hemoglobin 10.6 g/dL (12.0-15.0)
[2023-09-13 11:18] LABS: Glucose 1 Hour PP 50gm Dose 183 mg/dL
[2023-09-13 11:58] LABS: HIV 1/2 Ab P24 Ag Result Negative (Negative)
[2023-09-13 14:40] LABS: Vitamin D 25 Hydroxy 22.6 ng/mL
[2023-09-13] MEDS: RHO(D) IMMUNE GLOBULIN 300 MCG/2 ML SYRINGE IM (15:25)
== END 2023-09-13 09:39 | disposition home or self-care (01) ==
LOC: ANHLAB 09:41
PROVIDERS: PCP Advanced Practice Midwife; Visit Provider Advanced Practice Midwife
DX: O36.0130 Maternal care for anti-D [Rh] antibodies, third trimester, not applicable or unspecified (principal); Z3A.00 Weeks of gestation of pregnancy not specified
CPT/HCPCS: 36415; 82306; 82947; 85014; 85018; 85461; 86703; 86850; 86900; 86901; 90384; 96372; G0432; J2790

== ENCOUNTER 2023-09-21 06:59 | Outpatient (CLI) | payer OTHER, SELFPAY ==
[2023-09-21 07:28] LABS: Glucose Fasting 106 mg/dL
[2023-09-21 09:12] LABS: Glucose 1 Hour 189 mg/dL
[2023-09-21 09:59] LABS: Glucose 2 Hour 131 mg/dL
[2023-09-21 10:48] LABS: Glucose 3 Hour 135 mg/dL
== END 2023-09-21 07:00 | disposition home or self-care (01) ==
LOC: ANHLAB 07:03
PROVIDERS: PCP Advanced Practice Midwife; Visit Provider Obstetrics & Gynecology Gynecology
DX: O99.810 Abnormal glucose complicating pregnancy (principal); Z3A.00 Weeks of gestation of pregnancy not specified
CPT/HCPCS: 36415; 82951; 82952

== ENCOUNTER 2023-10-14 13:41 | Outpatient (CLI) | payer OTHER, SELFPAY ==
--- NOTE | ~2023-10-14 | US_ITS ---
EXAMINATION: US OB follow up DATE: 10/14/2023 14:13 INDICATION: Gestational diabetes. TECHNIQUE: Real-time ultrasound of the pelvis was performed. COMPARISON: Ultrasound 07/12/2023, 04/10/2023 FINDINGS: There is a single living fetus in breech presentation. The placenta is fundal. There is a 2.1 cm int ramural fibroid. heart rate is 127 beats per minute (bpm). The amniotic fluid index is 9.4 cm, which is normal. The following biometric data were obtained: Biparietal diameter (BPD): 8.2 cm; head circumference (HC): 30.3 cm; abdominal circumference (AC): 28 .4 cm; femur length (FL): 6.2 cm. These measurements are concordant. Estimated weight is 1995 g +/- 299 g, which correlates with the 43rd percentile when 12/06/23 is used as estimated date of delivery. As single measurements, these parameters are each equal to the following estimated gestational ages: BPD: 33 weeks 0 days. HC: 33 weeks 5 days. AC: 32 weeks 3 days. FL: 32 weeks 2 days. estimated gestational age based solely on measurements from this exam is 32 weeks 6 days +/- 2 weeks 2 days. IMPRESSION: 1. Single living fetus in breech presentation. 2. Estimated weight is 1995 g +/- 299 g, which correlates with the 43rd percentile when 4 is used as estimated date of delivery. This date was set by ultrasound on 04/10/2023. Reviewed, dictated and finalized at location A. IMPRESSION: 1. Single living fetus in breech presentation. 2. Estimated weight is 1995 g +/- 299 g, which correlates with the 43rd percentile when 12/06/23 is used as estimated date of delivery. This date was se t by ultrasound on 04/10/2023.
== END 2023-10-14 13:42 ==
LOC: MICIMG 13:42
PROVIDERS: PCP Advanced Practice Midwife; Visit Provider Advanced Practice Midwife
DX: O24.414 Gestational diabetes mellitus in pregnancy, insulin controlled (principal); Z3A.32 32 weeks gestation of pregnancy; Z79.4 Long term (current) use of insulin
CPT/HCPCS: 76816

== ENCOUNTER 2023-10-18 13:22 | Observation (INO) | payer OTHER, SELFPAY ==
--- NOTE | ~2023-10-18 | US_ITS ---
EXAMINATION: US OB follow up DATE: 10/18/2023 15:56 INDICATION: Vaginal bleeding during third trimester . Assess growth, amniotic fluid in dex and placenta. TECHNIQUE: Real-time ultrasound of the pelvis was performed. The interpreting radiologist was not pre sent for the study. COMPARISON: None. FINDINGS: There is a single living fetus in vertex presentation. The placenta is left fundal. heart rate is 146 beats per minute (bpm). The amniotic fluid index is 5.3 cm, which is below the normal range. (5th%-95%: 8.3-24.5 cm at 33 weeks estimated gestational age). 3 vessel umbilical cord. The following biometric data were obtained: BPD: 8.1 cm -> 32 weeks 3 days Head circumference: 30.5 cm -> 34 weeks 0 days Abdominal circumference: 29.1 cm -> 33 weeks 1 days Femur length: 6.4 cm -> 32 weeks 6 days These measurements are concordant. Head circumference to abdominal circumference ratio: 1.05 (normal range 0.96-1.11). Estimated weight: 2107 g (+/-) 316 g or 4 lbs. 10 oz. (+/-) 11 oz. IMPRESSION: 1. Single living fetus in vertex presentation with heart rate of 146 bpm. 2. Oligohydramnios with decreased amniotic fluid index of 5.3 cm. Correlate for leaking fluids. 3. Estimated weight is 42nd percentile by Hadlock criteria when 12/06/2023 is used as the estima sisi date of delivery (JUAN ALBERTO). Please correlate with clinical information or earlier ultrasounds for mos t accurate JUAN ALBERTO. Reviewed, dictated and finalized at location A. IMPRESSION: 1. Single living fetus in vertex presentation with heart rate of 146 bpm. 2. Oligohydramnios with decreased amniotic fluid index of 5.3 cm. Correlate for leaking fluids. 3. Estimated weight is 42nd percentile by Hadlock criteria when 12/06/2023 is used as the estimated date of delivery (JUAN ALBERTO). Please correlate with clinica l information or earlier ultrasounds for most accurate JUAN ALBERTO.
[2023-10-18 13:45] VITALS: BP 140/92; PULSE 109
[2023-10-18 14:00] VITALS: BP 138/87; PULSE 106; BMI 34.7
--- NOTE | 2023-10-18 14:06 | PC.NURSE ---
Fht's reassuring, bleeding asesses and no current bleeding noted on chux pad at this time. Reina ortiz.
[2023-10-18 14:30] VITALS: BP 130/88; PULSE 98
[2023-10-18 15:59] VITALS: BP 139/88; PULSE 88
--- NOTE | 2023-10-18 16:00 | OBADM ---
This patient, Asha Vallejo, admitted to the OB room OB Post 116 for observation. Patient/family oriented to hospital policies and general routines including ID bracelet, bed and alarms, visiting hours, pain management, procedures, bathroom and other care routines, personal items, smoking policy, room service/diet, and visiting hours. Patient/Family are encouraged to report perceived risks to care and to ask questions if they do not understand what they are told or what they should do.
--- NOTE | 2023-10-18 16:21 | PC.NURSE ---
Reina Pringle notified of US results and strelile spec exam, will be calling Dr Payne for further orders.
--- NOTE | 2023-10-18 16:31 | PC.NURSE ---
Reina Pringle called back, Dr Payne will call here with further orders.
--- NOTE | 2023-10-18 16:32 | PC.NURSE ---
Dr Payne updated on US results, Sterile spec results and no current bleeding or leaking noted. Order for ROM plus, if negative OK to dc home. Patient to follow up with MD next week for repeat US.
--- NOTE | 2023-10-22 07:31 | PM.OBTRLD ---
OB - Triage/Final Diagnosis Visit Information Date of evaluation: 10/21/23 Reason for evaluation: threatened labor Comments/Additional reasons for admission: I have assessed the risk for this patient, Ashasarah Joeum, and determined that she would benefit from observation care.
== END 2023-10-18 17:05 | disposition home or self-care (01) ==
PROVIDERS: Admitting Provider Obstetrics & Gynecology Gynecology; PCP Advanced Practice Midwife; Visit Provider Obstetrics & Gynecology
DX: O47.03 False labor before 37 completed weeks of gestation, third trimester (principal); Z3A.33 33 weeks gestation of pregnancy
CPT/HCPCS: 76816; 84112; G0378; G0379

== ENCOUNTER 2023-10-21 15:40 | Outpatient (CLI) | payer OTHER, SELFPAY ==
--- NOTE | ~2023-10-21 | US_ITS ---
EXAMINATION: US OB limited DATE: 10/21/2023 15:59 INDICATION: Bleeding in , 3rd trimester . TECHNIQUE: Real-time ultrasound of the pelvis was performed. COMPARISON: 10/18/2023 FINDINGS: There is a single living fetus in breech presentation, longitudinal lie. The placenta is fundal, wel l distant from the cervix. The cervix is partially obscured by anatomical shadowing, approximately 3. 1 cm. heart rate is 126 bpm. The amniotic fluid index is 4.0 cm, which is low (5th to 95th perc entile is 8.3 to 24.5 cm). IMPRESSION: Single living fetus in breech presentation. Oligohydramnios. Reviewed, dictated and finalized at location K.
== END 2023-10-21 15:41 ==
PROVIDERS: PCP Obstetrics & Gynecology Gynecology; Visit Provider Obstetrics & Gynecology Gynecology
DX: O32.1XX0 Maternal care for breech presentation, not applicable or unspecified (principal); O41.00X0 Oligohydramnios, unspecified trimester, not applicable or unspecified; Z3A.00 Weeks of gestation of pregnancy not specified
CPT/HCPCS: 76815

== ENCOUNTER 2023-10-26 09:40 | Outpatient (RCR) | payer OTHER, SELFPAY ==
[2023-09-20 15:12] VITALS: BP 121/82; PULSE 95
[2023-10-21 17:44] VITALS: BP 129/81; PULSE 108
--- NOTE | 2023-10-21 17:51 | PC.NURSE ---
Beth PARRA updated with ROM plus negative. CNM okay with pt going home. Pt has appt on sat with CNM. CNM ordered NST, Growth, SHIVA and umbilical dopplers on . Kick count BID and placing pt on bedrest.
[2023-10-23 17:16] VITALS: BP 128/82; PULSE 106
--- NOTE | ~2023-10-26 | US_ITS ---
EXAMINATION: US OB limited DATE: 10/21/2023 17:16 INDICATION: Oligohydramnios. TECHNIQUE: Real-time ultrasound of the pelvis was performed. COMPARISON: Ultrasound pelvis 10/21/2023 FINDINGS: There is a single fetus in breech presentation. The placenta is fundal. heart rate is 148 beat s per minute (bpm). The amniotic fluid index is 5.0 cm, which is low (5th percentile is 8.3 cm). IMPRESSION: 1. Single living fetus in breech presentation. 2. Oligohydramnios. Reviewed, dictated and finalized at location A.
--- NOTE | ~2023-10-26 | US_ITS ---
EXAMINATION: US OB limited w BPP DATE: 10/23/2023 16:50 INDICATION: Oligohydramnios and nonreactive nonstress test in office TECHNIQUE: Real-time pelvic ultrasound was performed. The interpreting radiologist was not present fo r the study. COMPARISON: None. FINDINGS: There is a single living fetus in vertex presentation. The placenta is fundal. heart rate is 1 43 beats per minute (bpm). Normal amniotic fluid index of 9.9 cm (5th%-95%: 8.3-24.5 cm at 33 weeks e stimated gestational age) Biophysical profile performed by the technologist: breathing (30 sec sustained breathing in 30 minutes): 2 out of 2 movement (3 gross body movements in 30 minutes): 0 out of 2 tone (one episode of bmunagy-ifrvjkxsw-ahbknwu limb movement): 2 out of 2 Amniotic fluid pocket (2 cm): 2 out of 2 Total score: 6 out of 8 IMPRESSION: 1. Single living fetus in vertex presentation with heart rate of 143 bpm. 2. Biophysical profile 6 out of 8. 3. Normal amniotic fluid index of 9.9 cm. Reviewed, dictated and finalized at location B.
[2023-10-26 09:59] VITALS: BP 122/83; PULSE 74
== END 2023-10-29 06:00 | disposition home or self-care (01) ==
LOC: ANHOBOP 09:40
PROVIDERS: PCP Advanced Practice Midwife; Visit Provider Obstetrics & Gynecology Gynecology
DX: O36.8130 Decreased fetal movements, third trimester, not applicable or unspecified (principal); Z3A.29 29 weeks gestation of pregnancy
CPT/HCPCS: 59025; 76815; 76819; 84112

== ENCOUNTER 2023-11-16 08:24 | Outpatient (CLI) | payer OTHER, SELFPAY ==
[2023-11-16 08:55] LABS: Hematocrit 34.6 % (37.0-47.0); Hemoglobin 11.4 g/dL (12.0-15.0)
== END 2023-11-16 08:25 | disposition home or self-care (01) ==
LOC: ANHLAB 08:27
PROVIDERS: PCP Obstetrics & Gynecology Gynecology; Visit Provider Obstetrics & Gynecology Gynecology
DX: O99.019 Anemia complicating pregnancy, unspecified trimester (principal); Z3A.00 Weeks of gestation of pregnancy not specified
CPT/HCPCS: 36415; 85014; 85018

== ENCOUNTER 2023-11-16 16:10 | Outpatient (CLI) | payer OTHER, SELFPAY ==
[2023-11-16 17:04] VITALS: BP 132/84; PULSE 96
--- NOTE | 2023-11-16 17:07 | PC.NURSE ---
Patient presents to L&D unit with complaints of wet shorts after sitting in the sun at a baseball game for several hours. Patient states she is unsure if it is sweat or if her membranes have ruptured. ROM+ test performed and was negative. Patient states she has not had any more leaking or wetness since she initially stood up at the ball game at 1300. Called Dr. Pinedo at 1646 and notified her of a Category I tracing, no contractions, patient states she feels good movement, and negative ROM+ test. Verbal orders received for discharge. Patient states she agrees with plan of care and has no questions at this time.
== END 2023-11-16 16:55 | disposition home or self-care (01) ==
LOC: ANHOBOP 16:53
PROVIDERS: PCP Obstetrics & Gynecology Gynecology; Visit Provider Advanced Practice Midwife
DX: O42.90 Premature rupture of membranes, unspecified as to length of time between rupture and onset of labor, unspecified weeks of gestation (principal); Z3A.00 Weeks of gestation of pregnancy not specified
CPT/HCPCS: 36415; 59025; 84112; 85014; 85018

== ENCOUNTER 2023-11-18 15:32 | Outpatient (RCR) | payer OTHER, SELFPAY ==
[2023-10-29 10:19] VITALS: BP 121/78; PULSE 88
[2023-11-02 09:21] VITALS: BP 131/84; PULSE 85
[2023-11-05 16:20] VITALS: BP 116/82; PULSE 98
[2023-11-11 16:31] VITALS: BP 129/87; PULSE 82
[2023-11-13 18:15] VITALS: BP 134/84; PULSE 82
--- NOTE | ~2023-11-18 | US_ITS ---
EXAMINATION: US OB follow up w BPP, US umbilical doppler DATE: 10/29/2023 09:51 (accession [id number]), 10/29/2023 09:52 (accession [id number]) INDICATION: Evaluate well-being and growth TECHNIQUE: Real-time ultrasound of the pelvis was performed. The interpreting radiologist was not pre sent for the study. COMPARISON: None. FINDINGS: There is a single living fetus in breech presentation. The placenta is fundal/posterior. cardi ac activity and movement are noted. heart rate is beats per minute (bpm). The amniotic fl uid index is 7.8 cm, which is low. Normal range for gestational age is 8.1-24.8 cm. The following biometric data were obtained: BPD: 85 cm corresponds to gestational age 34 weeks 1 day(s). Head circumference: 320 cm corresponds to gestational age 36 weeks 1 day(s). Abdominal circumference: 309 cm corresponds to gestational age 34 weeks 6 day(s). Femur length: 68 cm corresponds to gestational age 34 weeks 6 day(s). Head circumference to abdominal circumference ratio: 1.04 (mean 0.93-1.11). Estimated weight: 2537 g plus or minus 380 g, 54.4% by Hadlock method. Biophysical profile performed by the technologist: breathing (30 sec sustained breathing in 30 minutes): 2 out of 2 movement (3 gross body movements in 30 minutes: 2 out of 2 tone (one episode of veqkhdv-fedgehcjl-zwravuq limb movement): 2 out of 2 Amniotic fluid pocket (2 cm): 2 out of 2 Total score: 8 out of 8 Umbilical artery pulsed Doppler demonstrates peak systolic to end-diastolic velocity ratios (S/D rati os) of 2.97 (5th percentile = 2.07, 95th percentile = 3.53). IMPRESSION: 1. Single living fetus in breech presentation with heart rate of 133 bpm. 2. Normal placenta. 3. Biophysical profile 8 out of 8. 4. Gestational age by ultrasound of 34 weeks 5 day(s) with ultrasound estimated date of delivery (JUAN ALBERTO ) of 12/05/2023 by initial ultrasound. Appropriate interval growth. 5. Estimated weight is 54.4th percentile by Hadlock criteria. 6: Oligohydramnios. SHIVA measures 7.8 cm. 7: Normal umbilical Doppler study. Reviewed, dictated and finalized at location B. IMPRESSION: 1. Single living fetus in breech presentation with heart rate of 133 bpm. 2. Normal placenta. 3. Biophysical profile 8 out of 8. 4. Gestational age by ultrasound of 34 weeks 5 day(s) with ultrasound estimated date of delivery (JUAN ALBERTO) of 12/05/2023 by initial ultrasound. Appropriate interva l growth. 5. Estimated weight is 54.4th percentile by Hadlock criteria. 6: Oligohydramnios. SHIVA measures 7.8 cm. 7: Normal umbilical Doppler study.
--- NOTE | ~2023-11-18 | US_ITS ---
US OB limited w BPP, US OB follow up DATE: 11/13/2023 18:09 (accession [id number]), 11/13/2023 18:08 (accession [id number]) INDICATION: heart decelerations in physician's office. Gestational diabetes mellitus. TECHNIQUE: Real-time imaging and Doppler analysis COMPARISON: October 29, 2023 obstetrical ultrasound and biophysical profile FINDINGS: Live martines intrauterine gestation with fetus in longitudinal lie, vertex presentation. heart rate 145 bpm. Posterior fundal placenta. The amniotic fluid index measures 8.4 cm, slightly above the 5th percentile at 7.7 cm; 95th percentil e SHIVA is 24.9 cm. Biparietal diameter 8.77 cm; 35 weeks 3 days Head circumference 33.97 cm; 39 weeks 0 days Abdominal circumference 31.62 cm; 35 weeks 4 days Femur length 6.95 cm; 35 weeks 5 days based upon these measurements, composite age by Hadlock formula would be 36 weeks 3 days +/- 2 weeks 4 days with JUAN ALBERTO of 12/08/2023, compared to JUAN ALBERTO of 12/06/2023 dete rmined by 07/12/2023 prior obstetrical ultrasound examination. Estimated weight is 2804 +/- 4 121 g. Femur length/BPD: 79.26, within normal range of 71.0-87.0 Head circumference/abdominal circumference: 1.07, at upper limits of normal range of 0.92-1.07 Femur length/abdominal circumference: 21.98, within normal range of 20.00-24.00 Femur length/head circumference: 20.46, at lower limits of normal range of 20.40-22.31 BIOPHYSICAL PROFILE reported by biomedical repair technician: breathin out of 2 movement: 2 out of 2 tone: 2 out of 2 Amniotic fluid pocket: 2 out of 2 Total score: 8 out of 8 IMPRESSION: Normal biophysical profile score of 8 out of 8 Low normal amniotic fluid index of 8.4 cm Reviewed, dictated and finalized at Location A. Reviewed, dictated and finalized at location A. IMPRESSION: Normal biophysical profile score of 8 out of 8 Low normal amniotic fluid index of 8.4 cm
[2023-11-18 16:08] VITALS: BP 126/90; PULSE 98
== END 2023-12-30 08:16 | disposition home or self-care (01) ==
LOC: ANHOBOP 15:32
PROVIDERS: PCP Obstetrics & Gynecology Gynecology; Visit Provider Obstetrics & Gynecology Gynecology
DX: O24.419 Gestational diabetes mellitus in pregnancy, unspecified control (principal); Z3A.34 34 weeks gestation of pregnancy; Z3A.35 35 weeks gestation of pregnancy; O36.8330 Maternal care for abnormalities of the fetal heart rate or rhythm, third trimester, not applicable or unspecified; Z3A.36 36 weeks gestation of pregnancy; Z3A.37 37 weeks gestation of pregnancy
CPT/HCPCS: 59025; 76815; 76816; 76819; 76820

== ENCOUNTER 2023-11-20 16:40 | Inpatient (IN) | payer OTHER, SELFPAY ==
[2023-11-20] VITALS (23 sets, daily range): BP systolic 125–139; BP diastolic 82–97; PULSE 81–102; O2SAT 98–100
--- NOTE | 2023-11-20 17:02 | WPDOBADMIT ---
Obstetrics - Admit Note Admission Note: record reviewed. No pertinent additions to the history and/or any subsequent changes in the physical findings that are not consistent with the expected course of the were found. Additions to the history and/or subsequent changes in the physical findings follow. Decreased movement at term. NRNST in the office.
--- NOTE | 2023-11-20 17:03 | PM.OBPNLAB ---
Pain Control Date/time seen: 11/20/23 Assessment and Plan Comments: Pt admitted for IOL d/t decreased movement at term and NRNST in office. Pt has had borderline oligohydramnios for past month. S/p consult with Dr. Pinedo. Plan for IOL when bed/staff available. Plan pitocin.
[2023-11-20 17:26] LABS: Basophils Percent Auto 0.3 % (0.2-1.2); Eosinophils Absolute Auto 0.1 K/mm3 (0-0.3); Eosinophils Percent Auto 0.8 % (0-4.4); Hematocrit 33.4 % (37.0-47.0); Hemoglobin 11.5 g/dL (12.0-15.0); Immature Granulocyte Absolute 0.06 K/mm3 (0.00-0.031); Immature Granulocyte Percent A 0.6 % (0-0.5); Lymphocytes Absolute Auto 2.14 K/mm3 (0.9-3.2); Lymphocytes Percent Auto 22.6 % (18.3-44.2); Mean Corpuscular HGB Conc 34.4 g/dl (32-36); Mean Corpuscular Hemoglobin 30.9 pg (26-34); Mean Corpuscular Volume 89.8 fl (80-100); Mean Platelet Volume 10.6 fl (7.4-10.4); Monocytes Absolute Auto 0.5 K/mm3 (0.1-0.6); Monocytes Percent Auto 5.1 % (2.6-8.5); Neutrophils Absolute Auto 6.7 K/mm3 (1.3-6.7); Neutrophils Percent Auto 70.6 % (45.5-73.1); Platelet Count Result 204 k/mm3 (150-375); Red Blood Count 3.72 M/mm3 (4.2-5.4); Red Cell Distribution Width 15.4 % (11.5-14.5); White Blood Count 9.5 K/mm3 (4.5-10.0)
[2023-11-20] MEDS: INSULIN ASPART (*BKC) 100 UNITS/ML SUB-Q (18:46)
[2023-11-20 18:51] LABS: Glucose Point of Care 75 mg/dl (65-105)
--- NOTE | 2023-11-20 18:51 | PC.NURSE ---
RN called CNM to clarify insulin order. Order received to follow what pt currently takes at home . Pt states she takes 50 units of humalin before bed.
[2023-11-20] MEDS: INSULIN HUMAN NPH (*BKC) 100 UNITS/ML 50 UNITS SUB-Q (22:21)
[2023-11-20 22:26] LABS: Glucose Point of Care 95 mg/dl (65-105)
[2023-11-21] VITALS (157 sets, daily range): BP systolic 115–157; BP diastolic 65–98; PULSE 60–159; RESP 16–18; TEMP 36.4–37.2; O2SAT 76–100; BMI 34.3
[2023-11-21] MEDS: LACTATED RINGERS 1,000 ML 125 ML IV CONT ×2 (04:45→09:45)
[2023-11-21] MEDS: OXYTOCIN 30 UNITS/NS 500 ML 30 UNITS/500 ML BAG IV CONT (04:46)
[2023-11-21] MEDS: AMPICILLIN 2 GM/NS 100 ML 2 GM/100 ML BAG IVPB (04:46)
--- NOTE | 2023-11-21 05:05 | LDADM ---
This patient, Asha Vallejo, was admitted to Labor/Delivery/Recovery 108 on 11/20/23 at 16:40. Plans for labor, pain management and were discussed with patient. Patient/family oriented to hospital policies and general routines including ID bracelet, bed and alarms, visiting hours, pain management, procedures, bathroom and other care routines, personal items, smoking policy, room service/diet and guest tray routines, infant security routines, and visiting hours. Patient/Family are encouraged to report perceived risks to care and to ask questions if they do not understand what they are told or what they should do. See OBIX for further documentation.
[2023-11-21 05:49] LABS: Glucose Point of Care 68 mg/dl (65-105)
[2023-11-21 07:31] LABS: Glucose Point of Care 56 mg/dl (65-105)
--- NOTE | 2023-11-21 07:35 | PM.OBPNLAB ---
Pain Control Date/time seen: 11/21/23 07:35 Pain control: tolerating well Comments: mild contractions Pelvic Exam Dilation (cm): 4 (4.5) Effacement (%): 50 station: -2 Amniotic membrane status: Ruptured (clear fluid with AROM) Contractions Monitor mode: External Contraction pattern: Irregular Contraction intensity: Mild Status status: Category l Assessment and Plan Assessment: induction ongoing Plan: continuous present management Comments: Feeling better movement through night and this am
[2023-11-21] MEDS: AMPICILLIN 1 GM/NS 50 ML 1 GM/50 ML BAG IVPB ×2 (08:46→12:46)
[2023-11-21 09:08] LABS: Glucose Point of Care 107 mg/dl (65-105)
--- NOTE | 2023-11-21 09:18 | WPDANESEPP ---
Anes - Eval Pre Procedure Procedure: Labor epidural Date/Time: 11/21/23 09:18 Surgeon: Shahida Preop Diagnosis: Pain during labor Pre Op Diagnosis: iol Patient Data Age: 33 Gender: F Height: 1.6 m Weight: 88 kg Last Vital Signs Temp 36.6 C 11/21/23 09:02 Pulse 100 11/21/23 08:00 BP 143/86 H 11/21/23 08:00 Pulse Ox 98 11/21/23 09:16 O2 Del Method Room Air 11/21/23 05:05 Allergies Allergy/AdvReac Type Severity Reaction Status Date / Time banana Allergy Intermediate SWELLING,HI Verified 10/03/21 12:33 VES Home Medications Medication Instructions Recorded Confirmed Type ergocalciferol (vitamin D2) 1,250 50,000 unit PO 2XW 08/30/19 10/29/23 History mcg (50,000 unit) capsule (Vitamin D2) vit no.95-ferrous 1 tablet PO DAILY 08/30/19 10/29/23 History fumarate 28 mg-folic acid 800 mcg tablet () insulin NPH isoph U-100 human 100 50 unit subcut HS 10/23/23 11/20/23 History unit/mL subcutaneous suspension (Humulin N NPH U-100 Insulin (isophane susp)) insulin lispro 100 unit/mL 5 unit subcut QPM 10/23/23 11/20/23 History subcutaneous pen polysaccharide iron complex 150 mg 150 mg PO DAILY 10/23/23 10/29/23 History iron capsule Laboratory Tests 11/20/23 11/20/23 11/20/23 17:05 17:40 18:41 WBC 9.5 K/mm3 (4.5-10.0) RBC 3.72 L M/mm3 (4.2-5.4) Hgb 11.5 L g/dL (12.0-15.0) Hct 33.4 L % (37.0-47.0) MCV 89.8 fl (80-100) MCH 30.9 pg (26-34) MCHC 34.4 g/dl (32-36) RDW 15.4 H % (11.5-14.5) Plt Count 204 k/mm3 (150-375) MPV 10.6 H fl (7.4-10.4) Immature Gran % (Auto) 0.6 H % (0-0.5) Neut % (Auto) 70.6 % (45.5-73.1) Lymph % (Auto) 22.6 % (18.3-44.2) Trinity % (Auto) 5.1 % (2.6-8.5) Eos % (Auto) 0.8 % (0-4.4) Baso % (Auto) 0.3 % (0.2-1.2) Lymph # (Auto) 2.14 K/mm3 (0.9-3.2) Trinity # (Auto) 0.5 K/mm3 (0.1-0.6) Eos # (Auto) 0.1 K/mm3 (0-0.3) Baso # (Auto) 0.0 K/mm3 (0.0-0.1) Abs Immat Gran (auto) 0.06 H K/mm3 (0.00-0.031) Absolute Neuts (auto) 6.7 K/mm3 (1.3-6.7) Absolute Nucleated RBC 0.000 K/mm3 (0.0-0.012) Nucleated RBC % 0.0 % (0.0-0.2) POC Capillary Glucose 75 mg/dl (65-105) RPR Pending Blood Type A Negative Antibody Screen Positive Antibody Identification Passive Due to RH Imm Glob Antigen Identification Cancelled ROSALEE, IgG Interpret Neg ROSALEE, Poly Interpret Not Performed ROSALEE, Complement Interp Negative 11/20/23 11/21/23 11/21/23 22:21 05:46 07:27 WBC RBC Hgb Hct MCV MCH MCHC RDW Plt Count MPV Immature Gran % (Auto) Neut % (Auto) Lymph % (Auto) Trinity % (Auto) Eos % (Auto) Baso % (Auto) Lymph # (Auto) Trinity # (Auto) Eos # (Auto) Baso # (Auto) Abs Immat Gran (auto) Absolute Neuts (auto) Absolute Nucleated RBC Nucleated RBC % POC Capillary Glucose 95 mg/dl 68 mg/dl 56 L* mg/dl (65-105) (65-105) (65-105) RPR Blood Type Antibody Screen Antibody Identification Antigen Identification ROSALEE, IgG Interpret ROSALEE, Poly Interpret ROSALEE, Complement Interp 11/21/23 09:00 WBC RBC Hgb Hct MCV MCH MCHC RDW Plt Count MPV Immature Gran % (Auto) Neut % (Auto) Lymph % (Auto) Trinity % (Aut
[2023-11-21 11:25] LABS: Glucose Point of Care 62 mg/dl (65-105)
--- NOTE | 2023-11-21 13:14 | PM.OBPNLAB ---
Pain Control Date/time seen: 11/21/23 13:10 Pain control: tolerating well and epidural Pelvic Exam Dilation (cm): 9 (4.5) Effacement (%): 100 station: 0 Amniotic membrane status: Ruptured (clear fluid with AROM) Contractions Monitor mode: External Contraction frequency: 3 Contraction pattern: Regular Contraction intensity: Strong/Firm Status status: Category ll Assessment and Plan Assessment: induction ongoing Comments: CNM to bedside d/t complete dilation. SVE by CNM /0. Pt feeling some pressure with ctx but no urge to push. With 2 ctx, she beared down and pressure was applied digitally to the cervix. Cervix changed to 9.5 cm. Pt having some pain on her right side abdomen and back. Plan to reposition pt to far right lateral with leg supported on peanut ball to allow for remaining cervix to dilate and for descent. Anticipate vaginal . Dr. Pinedo updated.
[2023-11-21 13:20] LABS: Rapid Plasma Reagin Non-Reactive (NonReactive)
[2023-11-21 13:45] LABS: Glucose Point of Care 60 mg/dl (65-105)
[2023-11-21 13:45] LABS: Glucose Point of Care 82 mg/dl (65-105)
[2023-11-21] MEDS: miSOPROStol 200 MCG TABLET 800 MCG RECTAL (14:19)
[2023-11-21] MEDS: METHYLERGONOVINE MALEATE 0.2 MG/ML VIAL IM (14:23)
[2023-11-21] MEDS: OXYTOCIN 30 UNITS/NS 500 ML 30 UNITS/500 ML BAG 125 UNITS IV CONT (14:43)
[2023-11-21] MEDS: ceFAZolin 2 GM/D5W 50 ML 2 GM/50 ML BAG IVPB (14:44)
--- NOTE | 2023-11-21 14:44 | PM.OBPRVD ---
OB - Vaginal Delivery Note Procedure Delivery date: 11/21/23 Events: Gestational Diabetes (GDMA2) and Positive Group B Strep (GBS) Induction method: AROM and Per Pitocin Protocol Delivery monitor: External FHT and External Uterine Route of delivery: Episiotomy description: None Laceration Description: Superficial Specimen: Yes (placenta) Quantitative Blood Loss (ml): 636 Anesthesia type: Epidural Disposition: Floor Complications: Other complications ( hemorrhage 2/2 uterine atony after delivery of placenta) Narrative: Patient presented from the office after having a nonreactive NST and decreased movement at term. Induction was started with Pitocin and membranes were ruptured artificially. She progressed to complete dilation and pushed well with her contractions. She delivered the head over an intact perineum. A very loose nuchal cord was identified and reduced. Excellent restitution was observed. There was easy delivery of the anterior and posterior shoulders followed by the remainder of the . The was placed on the maternal abdomen and dried and stimulated by the nursery staff. after 1 minute of life, the cord was doubly clamped and cut. Cord blood, cord gases, and cord segment were obtained. After the delivery of the placenta, there is a period of uterine atony. Bimanual exam revealed 3, Quarter size clots in the uterus. the uterine firmed with fundal massage. Methergine was given. All delivery counts correct. Mother and baby skin to skin in the delivery room. 2 g of Ancef given IV due to bimanual exam. Eight hundred micro mcg of Cytotec given for uterine atony Baby Date of : 11/21/23 Time of : 14:04 Weeks of gestation at delivery: 37 Infant gender: Male Weight (pounds): 0 (unavailable at the time of this note) presentation: vertex position: Left Occiput Anterior Placenta delivery description: Spontaneous and Abnormal Configuration (velamentous cord insertion) Cord Vessel Description: 3 Vessels, Nuchal Cord, Loose and Delayed Cord Clamping score one minute: 9 score five minutes: 10
--- NOTE | 2023-11-21 14:52 | PM.OBDSVD ---
DS: Admitting Diagnosis Discharge Date 11/22/23 Admitting Diagnosis 33 y.o. at 37 weeks 4 days Oligohydramnios (now borderline) Decreased movement GDMA2 COVID in Anxiety DS: Discharge Diagnosis Discharge Diagnosis (1) (normal spontaneous vaginal delivery): Code(s): O80 - Encounter for full-term uncomplicated delivery Status: Acute (2) GDM, class A2: Code(s): O24.419 - Gestational diabetes mellitus in , unspecified control Status: Acute (3) Mother currently breastfeeds: Status: Acute (4) Anxiety: Code(s): F41.9 - Anxiety disorder, unspecified Status: Acute OB - DS: Summary Hospital Course Hospital Course: uncomplicated OB Procedures : NST and Ultrasound OB Procedures Intrapartum: Spontaneous Vag Delivery and GBS prophylaxis OB Procedures: : Antibiotics and RHo (D) lg Peripartum Data Delivery Method: Natural Vaginal Laceration Description: Superficial Episiotomy description: None complications: uterine atony Status at Discharge Functional status at discharge: independent ambulation Overall status at discharge: patient is progressing back to baseline Time Spent with Patient Time attestation: Total time spent providing and/or coordinating discharge services: Exam Narrative: Alert and oriented. Mood is pleasant and cooperative. Perineum with minimal edema. Fundus firm and below umbilicus. Const: General: cooperative, healthy appearing, no acute distress and alert Orientation/consciousness: patient oriented x3 Limitations: no limitations Resp: Effort & Inspection: normal respiratory effort and able to speak in complete sentences Auscultation: clear to auscultation bilaterally Cardio: Rate: regular rate GI: Inspection: normal to inspection Auscultation: normal bowel sounds : General: Yes bladder normal to palpation External Female Exam: other (lochia WNL) Bimanual exam- vagina & uterus: bladder normal to palpation Other: Fundus firm and below U Skin: General skin exam: normal color and no rashes or lesions noted Neuro: General: patient oriented x3 and moves all extremities Cognition (Neuro): normal cognition Extrem: General: normal to inspection and no calf tenderness Psych: Appearance: grossly normal Mental Status: mental status grossly normal Affect: normal affect Thought process: Normal thought process present DS: Data Data Completed and Pending Labs on day of discharge: Labs from last 24 hours 11/21/23 11/21/23 11/21/23 13:41 13:26 11:23 WBC RBC Hgb Hct MCV MCH MCHC RDW Plt Count MPV Immature Gran % (Auto) Neut % (Auto) Lymph % (Auto) [place] % (Auto) Eos % (Auto) Baso % (Auto) Lymph # (Auto) [place] # (Auto) Eos # (Auto) Baso # (Auto) Abs Immat Gran (auto) Absolute Neuts (auto) Absolute Nucleated RBC Nucleated RBC % POC Capillary Glucose 82 60 L 62 L RPR Blood Type Antibody Screen Antibody Identification Antigen Identification ROSALEE, IgG Interpret ROSALEE, Poly Interpret ROSALEE, Complement Interp 11/21/23 11/21/23 11/21/23 09:00 07:27 05:46 WBC RBC Hgb Hct MCV MCH MCHC RDW Plt Count MPV Immature Gran % (Auto) Neut % (Auto) Lymph % (Auto) [place] % (Auto) Eos % (Auto) Baso % (Auto) Lymph # (Auto) [place] # (Auto) Eos # (Auto) Baso # (Auto) Abs Immat Gran (auto) Absolute Neuts (auto) Absolute Nucleated RBC Nucleated RBC % POC Capillary Glucose 107 H 56 L* 68 RPR Blood Type Antibody Screen Antibody Identification Antigen Identification ROSALEE, IgG Interpret ROSALEE, Poly Interpret ROSALEE, Complement Interp 11/20/23 11/20/23 11/20/23 22:21 18:41 17:40 WBC RBC Hgb Hct MCV MCH MCHC RDW Plt Count MPV Immature Gran
[2023-11-21] MEDS: IBUPROFEN 600 MG TABLET PO ×2 (16:56→23:12)
[2023-11-21] MEDS: BENZOCAINE 20% AER SPR (*SP) 56 GM CAN 1 SPRAY TOPICAL (16:57)
[2023-11-21] MEDS: WITCH HAZEL 40 PADS 1 PAD TOPICAL (16:57)
--- NOTE | 2023-11-21 17:58 | OBPPTRN ---
1722-Patient transferred to post room #282 via wheelchair. Support person present. Oriented to unit, room, information board, rooming in, admission packet and security measures. Patient verbalizes understanding.
[2023-11-21] MEDS: DOCUSATE SODIUM 100 MG CAPSULE PO (20:00)
[2023-11-21] MEDS: POLYSACCHARIDE IRON COMPLEX 150 MG CAPSULE PO (20:00)
[2023-11-21] MEDS: ACETAMINOPHEN 325 MG TABLET 650 MG PO (20:00)
[2023-11-22] MEDS: ACETAMINOPHEN 325 MG TABLET 650 MG PO ×2 (02:35→07:44)
[2023-11-22 03:50] VITALS: BP 126/83; PULSE 82; RESP 16; TEMP 36.7; O2SAT 100
[2023-11-22 04:28] LABS: Hematocrit 27.7 % (37.0-47.0); Hemoglobin 9.1 g/dL (12.0-15.0)
[2023-11-22] MEDS: IBUPROFEN 600 MG TABLET PO ×2 (04:55→14:20)
[2023-11-22] MEDS: MULTIVIT/MIN/PREN/FOL AC/IRON TABLET 1 TAB PO (07:43)
[2023-11-22] MEDS: POLYSACCHARIDE IRON COMPLEX 150 MG CAPSULE PO (07:43)
[2023-11-22] MEDS: DOCUSATE SODIUM 100 MG CAPSULE PO (07:44)
[2023-11-22 08:00] VITALS: BP 133/87; PULSE 82; RESP 16; TEMP 36.6; O2SAT 100
--- NOTE | 2023-11-22 08:34 | PM.OBPNVD ---
OB - PN: Subj Subjective Date/time seen: 11/22/23 0715 Interval history: Doing well. Urinating without difficulty. Denies passing any large clots. Denies dizziness with ambulating. Tolerating po food and fluids. Bonding with . well. Patient comments: no complaints and pain well controlled baby status: doing well and nursing well [place] feeding status: exclusively breast feeding OB - PN: Obj Data Labs 11/22/23 03:43 Labs: Laboratory Results - last 24 hr 11/20/23 11/21/23 11/21/23 17:05 09:00 11:23 Hgb Hct POC Capillary Glucose 107 H 62 L RPR Non-reactive Blood Type Antibody Screen Baby's Blood Type Baby's ROSALEE 11/21/23 11/21/23 11/22/23 13:26 13:41 03:43 Hgb 9.1 L Hct 27.7 L POC Capillary Glucose 60 L 82 RPR Blood Type A Negative Antibody Screen TNP Baby's Blood Type A pos Baby's ROSALEE Positive OB - PN A/P Assessment and Plan (1) (normal spontaneous vaginal delivery): Code(s): O80 - Encounter for full-term uncomplicated delivery Status: Acute (2) Anxiety: Code(s): F41.9 - Anxiety disorder, unspecified Status: Acute (3) GDM, class A2: Code(s): O24.419 - Gestational diabetes mellitus in , unspecified control Status: Acute (4) Mother currently breastfeeds: Status: Acute Plan day: 1 Plan: discharge home Comments: Pt desires DC home today. Time Spent With Patient Time: Total time spent is greater than 50% in coordination of care (as documented) at patient's floor/unit and/or counseling patient: Review of Systems Review of Systems: All systems reviewed & are unremarkable except as noted in HPI and below Exam Narrative: Alert and oriented. Mood is pleasant and cooperative. Perineum with minimal edema. Fundus firm and below umbilicus. Const: General: cooperative, healthy appearing, no acute distress and alert Orientation/consciousness: patient oriented x3 Limitations: no limitations Resp: Effort & Inspection: normal respiratory effort and able to speak in complete sentences Auscultation: clear to auscultation bilaterally Cardio: Rate: regular rate GI: Inspection: normal to inspection Auscultation: normal bowel sounds : General: Yes bladder normal to palpation External Female Exam: other (lochia WNL) Bimanual exam- vagina & uterus: bladder normal to palpation Other: Fundus firm and below U Skin: General skin exam: normal color and no rashes or lesions noted Neuro: General: patient oriented x3 and moves all extremities Cognition (Neuro): normal cognition Extrem: General: normal to inspection and no calf tenderness Psych: Appearance: grossly normal Mental Status: mental status grossly normal Affect: normal affect Thought process: Normal thought process present
--- NOTE | 2023-11-22 09:52 | WPDANLDPN2 ---
Anes-Prog Note L&D Date/Time: 11/22/23 09:52 Comfortable throughout: labor Neuraxial method: epidural Epidural/Spinal procedure site: clean & non-tender Neuro status: Neuro function grossly intact. Cardiovascular status: normal Respiratory status: normal Airway patency: baseline Mental status: baseline Post-Op hydration status: normal Vital Signs: Last Vital Signs Temp 36.6 C 11/22/23 08:00 Pulse 82 11/22/23 08:00 Resp 16 11/22/23 08:00 BP 133/87 11/22/23 08:00 Pulse Ox 100 11/22/23 08:00 O2 Del Method Room Air 11/22/23 08:00 Pain score (VAS): 0/0 I/O: Intake & Output 11/21/23 11/22/23 11/22/23 23:59 07:59 15:59 Output Total 80 Balance -80 Post-procedural complaints: none Patient feedback: Patient satisfied with anesthetic care.
--- NOTE | 2023-11-22 13:56 | PC.NURSE ---
[id number] Introductions were made, then consulted with patient to assess needs related to . Mother led the conversation with her?plans to feed?her infant, the?experience so far and her experience with two other children that were born term. Mother is resting in bed with swaddled not demonstrating feeding cues and it has been 2.5 hours since the start of the last feeding. services offered and mother accepted. Encouraged understanding of the benefits of skin to skin (demonstrating unwrapping and placing upright on her chest), stimulating with massage touch, changing positions to encourage wakefulness, how to watch for early feeding cues, responsive feeding, feeding on demand (aiming for 8-12 times in 24 hours, about every 2-3 hours), milk production, building/maintaining a milk supply, working with a late infant and infant demonstrated feeding cues almost immediately once placed [id number] upright on mothers chest/breast. Mother was encouraged to turn infants body towards her belly to belly, then infant latched optimally to the left breast in cross cradle position. Education given to the mother of how to visualize the suckling (with good rocking jaw motion), swallows (dropping of the lower jaw) and how to listen for drinking at the breast (the ka sound). Infant was able to maintain latch without pain to mother protecting the nipple with optimal positioning and latching. Reminded parent of how to watch and feel for signs of a good latch with swallowing vs a non effective latch. Reviewed comfort measures of healing with a warm, wet washcloth to rinse breast, then leave open to air-dry, good handwashing when or touching the breast/nipples to prevent infection. Mother voiced understanding of skin to skin, stimulating with massage touch, responsive feedings, hand expressed colostrum, talking to infant to encourage if it has been 2 -2.5 hours since the start of the last , to call if infant does not latch, or if there is discomfort with . Resources used for education were facilitated with the visual educational handouts. Inpatient/outpatient resources provided with feeding sheet, name written on the communication board, and the mom/baby guide. Mother voiced understanding of information, demonstrated learning and will call if there is a request for assistance.
[2023-11-22] MEDS: RHO(D) IMMUNE GLOBULIN 300 MCG/2 ML SYRINGE IM (16:28)
[2023-11-23 08:55] VITALS: BP 136/86; PULSE 90; RESP 20; TEMP 36.8; O2SAT 99
== END 2023-11-22 16:55 | disposition home or self-care (01) | DRG 806 ==
LOC: ANHOBPP 16:49 → ANHLDR 11-21 05:03 → ANHOB2 11-21 17:46
PROVIDERS: Admitting Provider Advanced Practice Midwife; Visit Provider Obstetrics & Gynecology Gynecology
DX: O36.8130 Decreased fetal movements, third trimester, not applicable or unspecified (principal); O41.03X0 Oligohydramnios, third trimester, not applicable or unspecified; Z37.0 Single live birth; O24.429 Gestational diabetes mellitus in childbirth, unspecified control; O72.1 Other immediate postpartum hemorrhage; Z3A.37 37 weeks gestation of pregnancy; O99.824 Streptococcus B carrier state complicating childbirth; O69.81X0 Labor and delivery complicated by cord around neck, without compression, not applicable or unspecified; O43.123 Velamentous insertion of umbilical cord, third trimester; O99.344 Other mental disorders complicating childbirth; F41.9 Anxiety disorder, unspecified; Z86.16 Personal history of COVID-19
CPT/HCPCS: 36415; 59025; 82948; 85014; 85018; 85025; 85461; 86592; 86850; 86880; 86900; 86901; 88307; 90384; A9270; J0290; J0690; J1815; J2210; J2590; J2790; J2795; J7120

== ENCOUNTER 2023-12-27 11:26 | Outpatient (CLI) | payer OTHER, SELFPAY ==
[2023-12-27] VITALS (10 sets, daily range): BP systolic 136–188; BP diastolic 91–115; PULSE 53–75
[2023-12-27 12:01] LABS: Basophils Absolute Auto 0.1 K/mm3 (0.0-0.1); Basophils Percent Auto 0.8 % (0.2-1.2); Eosinophils Absolute Auto 0.1 K/mm3 (0-0.3); Eosinophils Percent Auto 1.7 % (0-4.4); Hematocrit 35.7 % (37.0-47.0); Hemoglobin 11.5 g/dL (12.0-15.0); Immature Granulocyte Absolute 0.04 K/mm3 (0.00-0.031); Immature Granulocyte Percent A 0.5 % (0-0.5); Lymphocytes Absolute Auto 2.73 K/mm3 (0.9-3.2); Lymphocytes Percent Auto 36.4 % (18.3-44.2); Mean Corpuscular HGB Conc 32.2 g/dl (32-36); Mean Corpuscular Hemoglobin 28.9 pg (26-34); Mean Corpuscular Volume 89.7 fl (80-100); Mean Platelet Volume 9.2 fl (7.4-10.4); Monocytes Absolute Auto 0.4 K/mm3 (0.1-0.6); Monocytes Percent Auto 5.3 % (2.6-8.5); Neutrophils Absolute Auto 4.1 K/mm3 (1.3-6.7); Neutrophils Percent Auto 55.3 % (45.5-73.1); Platelet Count Result 249 k/mm3 (150-375); Red Blood Count 3.98 M/mm3 (4.2-5.4); Red Cell Distribution Width 12.8 % (11.5-14.5); White Blood Count 7.5 K/mm3 (4.5-10.0)
[2023-12-27 12:15] LABS: Alanine Aminotransferase 20 U/L (6-35); Albumin Level 4.4 g/dL (3.5-5.1); Alkaline Phosphatase 66 U/L (38-126); Anion Gap 7 mmol/L (4-12); Aspartate Amino Transferase 24 U/L (14-36); Bilirubin,Total 0.6 mg/dL (0.2-1.3); Blood Urea Nitrogen 12 mg/dL (7-17); Carbon Dioxide 27 mmol/L (22-30); Chloride 106 mmol/L (98-107); Estimated Glomerular Filt Rate > 60; Glucose 89 mg/dL (65-110); Potassium 4.2 mmol/L (3.4-5.0); Sodium 140 mmol/L (137-145); Uric Acid 5.8 mg/dL (2.5-7.5)
[2023-12-27 12:52] LABS: Creatinine Urine 81.8 mg/dL
[2023-12-27] MEDS: LABETALOL HCL 100 MG TABLET 200 MG PO (12:55)
[2023-12-27 13:12] LABS: Total Protein Urine Random < 5 mg/dL; Ur Ttl Prot Creatinine Ratio < 0.06 mg/mg (0-0.20)
--- NOTE | 2023-12-27 13:40 | PM.OBTRLD ---
OB - Triage/Final Diagnosis Visit Information Date of evaluation: 12/27/23 Reason for evaluation: other (pp htn) Comments/Additional reasons for admission: I have assessed the risk for this patient, Asha Vallejo, and determined that she would benefit from observation care. Evaluation Laboratory results: Laboratory Tests 12/27/23 12/27/23 11:48 11:53 WBC 7.5 RBC 3.98 L Hgb 11.5 L Hct 35.7 L MCV 89.7 MCH 28.9 MCHC 32.2 RDW 12.8 Plt Count 249 MPV 9.2 Immature Gran % (Auto) 0.5 Neut % (Auto) 55.3 Lymph % (Auto) 36.4 [place] % (Auto) 5.3 Eos % (Auto) 1.7 Baso % (Auto) 0.8 Lymph # (Auto) 2.73 [place] # (Auto) 0.4 Eos # (Auto) 0.1 Baso # (Auto) 0.1 Abs Immat Gran (auto) 0.04 H Absolute Neuts (auto) 4.1 Absolute Nucleated RBC 0.000 Nucleated RBC % 0.0 Sodium 140 Potassium 4.2 Chloride 106 Carbon Dioxide 27 Anion Gap 7 BUN 12 Creatinine 0.70 Estim Creat Clear Calc Not Reportable Estimated GFR > 60 Glucose 89 Uric Acid 5.8 Calcium 10.0 Total Bilirubin 0.6 AST 24 ALT 20 Alkaline Phosphatase 66 Total Protein 7.0 Albumin 4.4 U Random Total Protein < 5 Urine Creatinine 81.8 Protein/Creat Ratio 2 < 0.06 Vital signs: Vital Signs - 24 hr 12/27/23 11:44 12/27/23 12:01 12/27/23 12:15 Pulse Rate 60 63 58 L Blood Pressure 160/106 H 155/115 H 166/100 H 12/27/23 12:30 12/27/23 12:46 12/27/23 12:50 Pulse Rate 57 L 68 53 L Blood Pressure 160/115 H 173/109 H 188/104 H 12/27/23 12:55 Pulse Rate 70 Blood Pressure
--- NOTE | 2023-12-27 14:14 | PC.NURSE ---
2994--Phone call to Dr. Payne re: danni., pt. asymptomatic, and lab reults. Orders for Labetalol 200mg p.o. and recheck BP in one hour.
--- NOTE | 2023-12-27 14:21 | PC.NURSE ---
1400--Report to Dr. Aly re: BP 1 hr after Labetalol dose. Orders to DC home with Rx for Labetalol 200mg PO TID.
--- NOTE | 2023-12-27 14:31 | PC.NURSE ---
1410--Pt. DC home with PP preeclampsia S&Sx to watch for and instuctions for f/u with her primary OB on Saturday. Pt. verbalizes understanding.
== END 2023-12-27 14:10 ==
LOC: ANHOBOP 11:31 → ANHOBPP 11:33
PROVIDERS: Obstetrics & Gynecology; Visit Provider Obstetrics & Gynecology Gynecology
DX: O13.9 Gestational [pregnancy-induced] hypertension without significant proteinuria, unspecified trimester (principal); Z3A.00 Weeks of gestation of pregnancy not specified
CPT/HCPCS: 36415; 80053; 82570; 84156; 84550; 85025; 99199; A9270